=== PATIENT | female | born 1970 ===

== ENCOUNTER 2019-04-06 14:06 | Inpatient (IN) ==
[2019-04-06] MEDS ORDERED: ONDANSETRON 4 MG/2 ML VIAL IV PRN (17:41)
[2019-04-06] MEDS ORDERED: DEXTROSE 50% 25 GM/50 ML VIAL IV PRN (17:52)
[2019-04-06] MEDS: HYDROmorphone 2 MG/1 ML VIAL IV PRN (20:58)
[2019-04-06] MEDS: INSULIN LISPRO 100 UNIT/ML SUBCUT SCH (20:59)
[2019-04-06] MEDS: amLODIPine 5 MG TABLET PO SCH (20:59)
[2019-04-06] MEDS: FOLIC ACID 1 MG TABLET PO SCH (20:59)
[2019-04-06] MEDS: metroNIDAZOLE INJ 500 MG in PREMIX 1 EACH IV SCH (20:59)
[2019-04-06] MEDS: CEFEPIME 2,000 MG in SYRINGE 1 EACH IV SCH (22:20)
[2019-04-06] MEDS: prednisoLONE ACETATE 1% OPH SUSP 5 ML BOTTLE LEFT EYE SCH (22:20)
[2019-04-07] MEDS: CEFEPIME 2,000 MG in SYRINGE 1 EACH IV SCH (04:58)
[2019-04-07 04:59] LABS: Basophils # 0.1 10*3/uL (0.0-0.2); Basophils % 0.3 % (0.0-0.8); Eosinophils # 0.1 10*3/uL (0.0-0.87); Eosinophils % 0.8 % (0.00-10.9); Hematocrit 32.9 VOL% (35.7-47.0); Hemoglobin 10.3 GM/DL (12.0-16.0); Immature Granulocytes % 1.2 %; Immature Granulocytes Absolute 0.19 #; Lymphocytes # 0.6 10*3/uL (1.4-4.0); Lymphocytes % 3.7 % (21.3-54.2); Mean Corpuscular HGB Conc 31.3 GM/DL (32-36); Mean Corpuscular Volume 97.1 FL (87-102); Mean Platelet Volume 11.3 FL (9.6-12.0); Monocytes % 5.1 % (1.7-12.7); Neutrophils % 88.9 % (38.7-73.9); Platelet Count 146 T/CUMM (130-400); Red Blood Count 3.39 MC/CUMM (3.8-5.5); Red Cell Distribution Width 15.8 % (9.3-17.3); White Blood Count 15.6 T/CUMM (4-12)
[2019-04-07] MEDS: metroNIDAZOLE INJ 500 MG in PREMIX 1 EACH IV SCH ×3 (05:02→22:56)
[2019-04-07 05:16] LABS: Albumin 2.2 G/DL (3.4-5.0); Bilirubin,Total 2.3 MG/DL (0.2-1.0); Osmolality,Calculated 276.8 MOS/KG (273-304); Total Protein 6.7 G/DL (6.4-8.3)
[2019-04-07 05:43] LABS: Eosinophils 1 % (0-10); Hypochromasia 1+; Lymphocytes 4 % (20-55); Platelet Estimate Normal; Segmented Neutrophils 88 % (50-85); Total Cells Counted 100
[2019-04-07] MEDS: INSULIN LISPRO 100 UNIT/ML SUBCUT SCH ×4 (08:20→22:56)
[2019-04-07] MEDS: SEVELAMER CARBONATE 800 MG TABLET PO SCH ×3 (10:53→18:27)
[2019-04-07] MEDS: prednisoLONE ACETATE 1% OPH SUSP 5 ML BOTTLE LEFT EYE SCH ×3 (10:54→22:56)
[2019-04-07] MEDS ORDERED: BUPIVACAINE 0.5% 50 ML VIAL ONE (12:33)
[2019-04-07] MEDS ORDERED: LIDOCAINE 1%/EPI INJ 20 ML VIAL ONE (12:33)
[2019-04-07] MEDS ORDERED: EPOETIN ALFA 10,000 UNIT/1 ML VIAL IV PRN (13:25)
[2019-04-07 14:50] LABS: Hepatitis B Core IgM Quant 0.11 Index; Hepatitis B Surface Ag Quant < 0.10 Index; Hepatitis B Surface Ag Result Negative (Negative); Hepatitis C Virus Ab Result Negative (Negative)
[2019-04-07] MEDS: FOLIC ACID 1 MG TABLET PO SCH ×2 (15:58→22:56)
[2019-04-07] MEDS: METOPROLOL SUCCINATE XL 25 MG TABLET PO SCH (15:59)
[2019-04-07] MEDS: amLODIPine 5 MG TABLET PO SCH ×2 (15:59→22:56)
[2019-04-07] MEDS: CYANOCOBALAMIN 500 MCG TABLET PO SCH (15:59)
[2019-04-07] MEDS ORDERED: CALCIUM CHLORIDE 1,000 MG/10 ML VIAL IV ONE (16:07)
[2019-04-07] MEDS ORDERED: ETOMIDATE 40 MG/20 ML VIAL IV ONE (16:08)
[2019-04-07] MEDS ORDERED: SEVOFLURANE 1 UNIT/15 MINUTE INH ONE (16:08)
[2019-04-07] MEDS ORDERED: ACETAMINOPHEN 1,000 MG/100 ML VIAL IV ONE (16:08)
[2019-04-07] MEDS ORDERED: ROCURONIUM 100 MG/10 ML VIAL IV ONE (16:08)
[2019-04-07] MEDS ORDERED: SODIUM CHLORIDE 0.9% 500 ML IV ONE (16:08)
[2019-04-07] MEDS ORDERED: PHENYLEPHRINE 1 MG/10 ML SYRINGE IV ONE (16:08)
[2019-04-07] MEDS ORDERED: fentaNYL 100 MCG/2 ML VIAL ONE (16:08)
[2019-04-07] MEDS ORDERED: ONDANSETRON 4 MG/2 ML VIAL ONE (16:08)
[2019-04-07 17:17] LABS: Basophils % 0.4 % (0.0-0.8); Eosinophils % 0.6 % (0.00-10.9); Hematocrit 30.6 VOL% (35.7-47.0); Hemoglobin 9.5 GM/DL (12.0-16.0); Immature Granulocytes % 1.4 %; Immature Granulocytes Absolute 0.07 #; Lymphocytes # 0.5 10*3/uL (1.4-4.0); Mean Corpuscular Volume 97.5 FL (87-102); Mean Platelet Volume 11.2 FL (9.6-12.0); Neutrophils % 80.6 % (38.7-73.9); Platelet Count 156 T/CUMM (130-400); Red Blood Count 3.14 MC/CUMM (3.8-5.5); Red Cell Distribution Width 16.2 % (9.3-17.3); White Blood Count 4.9 T/CUMM (4-12)
[2019-04-07 17:44] LABS: Calcium 9.2 MG/DL (8.5-10.1); Osmolality,Calculated 282.5 MOS/KG (273-304)
[2019-04-07] MEDS ORDERED: DOPamine 800 MG/250 ML PREMIX IV ONE (17:51)
[2019-04-07 18:08] LABS: Band Neutrophils 4 % (0-10); Lymphocytes 13 % (20-55); Segmented Neutrophils 81 % (50-85); Total Cells Counted 100
[2019-04-07 18:09] LABS: Atypical Lymphocytes 1+; Burr Cells 1+; Polychromasia Slight; Rouleau 1+
[2019-04-07 18:10] LABS: Anisocytosis 1+; Macrocytosis 1+; Microcytosis 1+; Platelet Estimate Normal; Poikilocytosis 1+
[2019-04-07] MEDS ORDERED: DOPamine 800 MG/250 ML PREMIX IV PRN (19:00)
[2019-04-07] MEDS ORDERED: ALBUMIN 25% 25 GM in PREMIX 1 EACH IV PRN (19:15)
[2019-04-07] MEDS: GLUCAGON 1 MG VIAL IM PRN ×2 (19:30→20:35)
[2019-04-07] MEDS ORDERED: SODIUM CHLORIDE 0.9% 1,000 ML IV PRN (19:53)
[2019-04-07] MEDS: PHENYLEPHRINE DRIP 40 MG/250 ML PREMIX IV PRN (20:30)
[2019-04-07 20:51] LABS: ABG Base Excess -1.3 MMOL/L (-2.5-2.5); ABG HCO3 23.3 MMOL/L (20-26); ABG Oxygen Saturation 93.1 % (95-100); ABG PCO2 36.6 MM HG (35-48); ABG PH 7.407 (7.35-7.45); ABG PO2 68.7 MM HG (80-95); ABG TCO2 21.1 MMOL/L (23-27)
[2019-04-07] MEDS ORDERED: VECURONIUM 10 MG VIAL IV ONE ×3 (20:51→21:00)
[2019-04-07] MEDS ORDERED: ETOMIDATE 20 MG/10 ML VIAL IV ONE ×2 (20:51→20:59)
[2019-04-07 21:04] LABS: PT Patient Result 11.1 SECS
[2019-04-07 21:06] LABS: Basophils % 0.4 % (0.0-0.8); Eosinophils % 0.3 % (0.00-10.9); Hematocrit 29.3 VOL% (35.7-47.0); Immature Granulocytes % 0.4 %; Immature Granulocytes Absolute 0.03 #; Lymphocytes # 0.7 10*3/uL (1.4-4.0); Lymphocytes % 10.3 % (21.3-54.2); Mean Corpuscular HGB Conc 30.7 GM/DL (32-36); Mean Corpuscular Volume 97.3 FL (87-102); Mean Platelet Volume 11.5 FL (9.6-12.0); Monocytes % 5.5 % (1.7-12.7); Neutrophils % 83.1 % (38.7-73.9); Platelet Count 161 T/CUMM (130-400); Red Blood Count 3.01 MC/CUMM (3.8-5.5); Red Cell Distribution Width 16.1 % (9.3-17.3)
[2019-04-07] MEDS ORDERED: PROPOFOL 1,000 MG/100 ML BOTTLE IV ONE (21:08)
[2019-04-07 21:11] LABS: Partial Thromboplastin Time 44.3 SECS (0-40)
[2019-04-07] MEDS: PROPOFOL 1,000 MG/100 ML BOTTLE IV SCH (21:11)
[2019-04-07 21:12] LABS: Albumin 2.5 G/DL (3.4-5.0); Bilirubin,Total 3.6 MG/DL (0.2-1.0); Calcium 9.2 MG/DL (8.5-10.1); Osmolality,Calculated 272.7 MOS/KG (273-304); Total Protein 6.5 G/DL (6.4-8.3); White Blood Count 6.8 T/CUMM (4-12)
[2019-04-07] MEDS ORDERED: SODIUM CHLORIDE 0.9% 1,000 ML IV ONE (21:20)
[2019-04-07] MEDS: DEXTROSE 5% NACL 0.9% 1,000 ML IV SCH (21:20)
[2019-04-07 21:27] LABS: Anisocytosis 2+; Band Neutrophils 5 % (0-10); Eosinophils 1 % (0-10); Lymphocytes 12 % (20-55); Macrocytosis 2+; Metamyelocytes 1 %; Microcytosis 1+; Segmented Neutrophils 77 % (50-85); Total Cells Counted 100
[2019-04-07 21:29] LABS: Burr Cells 1+; Schistocytes Slight
[2019-04-07 21:30] LABS: Platelet Estimate Normal
[2019-04-07 22:20] LABS: ABG Base Excess -2.8 MMOL/L (-2.5-2.5); ABG Oxygen Saturation 97.9 % (95-100); ABG PCO2 39.9 MM HG (35-48); ABG PH 7.357 (7.35-7.45); ABG TCO2 20.9 MMOL/L (23-27)
[2019-04-07] MEDS: HYDROmorphone 2 MG/1 ML VIAL IV PRN (22:30)
[2019-04-08] MEDS: HYDROmorphone 2 MG/1 ML VIAL IV PRN ×6 (00:35→23:16)
[2019-04-08] MEDS: PHENYLEPHRINE DRIP 40 MG/250 ML PREMIX IV PRN ×3 (03:39→11:00)
[2019-04-08 04:20] LABS: ABG Base Excess -3.2 MMOL/L (-2.5-2.5); ABG HCO3 21.8 MMOL/L (20-26); ABG Oxygen Saturation 98.7 % (95-100); ABG PCO2 34.1 MM HG (35-48); ABG PH 7.397 (7.35-7.45); ABG TCO2 18.9 MMOL/L (23-27)
[2019-04-08 04:47] LABS: Basophils # 0.1 10*3/uL (0.0-0.2); Basophils % 0.6 % (0.0-0.8); Eosinophils # 0.3 10*3/uL (0.0-0.87); Eosinophils % 3.5 % (0.00-10.9); Hematocrit 32.4 VOL% (35.7-47.0); Hemoglobin 10.6 GM/DL (12.0-16.0); Immature Granulocytes % 0.7 %; Immature Granulocytes Absolute 0.06 #; Lymphocytes # 0.8 10*3/uL (1.4-4.0); Lymphocytes % 9.5 % (21.3-54.2); Mean Corpuscular HGB Conc 32.7 GM/DL (32-36); Mean Corpuscular Volume 92.3 FL (87-102); Mean Platelet Volume 11.4 FL (9.6-12.0); Monocytes % 6.4 % (1.7-12.7); Neutrophils % 79.3 % (38.7-73.9); Platelet Count 110 T/CUMM (130-400); Red Blood Count 3.51 MC/CUMM (3.8-5.5); White Blood Count 8.7 T/CUMM (4-12)
[2019-04-08 05:06] LABS: Albumin 1.6 G/DL (3.4-5.0); Bilirubin,Total 2.7 MG/DL (0.2-1.0); Calcium 7.9 MG/DL (8.5-10.1); Osmolality,Calculated 284.1 MOS/KG (273-304); Total Protein 4.8 G/DL (6.4-8.3)
[2019-04-08] MEDS: CEFEPIME 1,000 MG in SYRINGE 1 EACH IV SCH (05:07)
[2019-04-08] MEDS: metroNIDAZOLE INJ 500 MG in PREMIX 1 EACH IV SCH ×3 (05:07→22:05)
[2019-04-08 05:08] LABS: Amylase 34 U/L (25-115)
[2019-04-08] MEDS: DEXTROSE 5% NACL 0.9% 1,000 ML IV SCH ×3 (05:08→21:30)
[2019-04-08 05:12] LABS: Band Neutrophils 19 % (0-10); Hypochromasia Slight; Lymphocytes 9 % (20-55); Platelet Estimate Decreased; Segmented Neutrophils 61 % (50-85); Total Cells Counted 100
[2019-04-08 05:13] LABS: Microcytosis Slight
[2019-04-08] MEDS: INSULIN LISPRO 100 UNIT/ML SUBCUT SCH ×5 (06:09→22:31)
[2019-04-08] MEDS: SEVELAMER CARBONATE 800 MG TABLET PO SCH ×2 (10:28→12:29)
[2019-04-08] MEDS: CYANOCOBALAMIN 500 MCG TABLET PO SCH (10:31)
[2019-04-08] MEDS: FOLIC ACID 1 MG TABLET PO SCH ×2 (10:32→21:57)
[2019-04-08] MEDS: METOPROLOL SUCCINATE XL 25 MG TABLET PO SCH ×2 (12:21→12:29)
[2019-04-08] MEDS: prednisoLONE ACETATE 1% OPH SUSP 5 ML BOTTLE LEFT EYE SCH ×3 (12:21→22:31)
[2019-04-08] MEDS: amLODIPine 5 MG TABLET PO SCH (12:29)
[2019-04-08] MEDS: SEVELAMER CARBONATE POWDER 2.4 GM PACK PO SCH ×2 (13:15→17:06)
[2019-04-08] MEDS ORDERED: PHENYLEPHRINE DRIP 40 MG/250 ML PREMIX IV ONE (14:14)
[2019-04-08] MEDS: PHENYLEPHRINE INJ 160 MG in SODIUM CHLORIDE 0.9% 234 ML IV PRN (16:00)
[2019-04-08] MEDS: PROPOFOL 1,000 MG/100 ML BOTTLE IV SCH ×2 (19:25→22:02)
[2019-04-09] MEDS: INSULIN LISPRO 100 UNIT/ML SUBCUT SCH ×6 (00:55→21:48)
[2019-04-09] MEDS: HYDROmorphone 2 MG/1 ML VIAL IV PRN ×3 (01:20→23:15)
[2019-04-09] MEDS: PHENYLEPHRINE INJ 160 MG in SODIUM CHLORIDE 0.9% 234 ML IV PRN ×2 (01:35→08:46)
[2019-04-09 02:56] LABS: ABG Base Excess -3.3 MMOL/L (-2.5-2.5); ABG HCO3 21.7 MMOL/L (20-26); ABG Oxygen Saturation 99.3 % (95-100); ABG PCO2 25.2 MM HG (35-48); ABG PH 7.484 (7.35-7.45)
[2019-04-09 03:12] LABS: Basophils # 0.1 10*3/uL (0.0-0.2); Basophils % 0.5 % (0.0-0.8); Eosinophils # 0.1 10*3/uL (0.0-0.87); Eosinophils % 0.3 % (0.00-10.9); Hematocrit 31.5 VOL% (35.7-47.0); Hemoglobin 10.2 GM/DL (12.0-16.0); Immature Granulocytes % 1.8 %; Immature Granulocytes Absolute 0.44 #; Lymphocytes # 1.1 10*3/uL (1.4-4.0); Lymphocytes % 4.4 % (21.3-54.2); Mean Corpuscular HGB Conc 32.4 GM/DL (32-36); Mean Corpuscular Volume 91.3 FL (87-102); Mean Platelet Volume 12.9 FL (9.6-12.0); Monocytes % 2.9 % (1.7-12.7); NRBC # 0.05 10*3/uL; Neutrophils % 90.1 % (38.7-73.9); Platelet Count 93 T/CUMM (130-400); Red Blood Count 3.45 MC/CUMM (3.8-5.5); Red Cell Distribution Width 17.6 % (9.3-17.3)
[2019-04-09 03:20] LABS: Albumin 1.3 G/DL (3.4-5.0); Bilirubin,Total 2.2 MG/DL (0.2-1.0); Calcium 7.8 MG/DL (8.5-10.1); Osmolality,Calculated 281.4 MOS/KG (273-304); Total Protein 4.4 G/DL (6.4-8.3)
[2019-04-09 04:21] LABS: Band Neutrophils 15 % (0-10); Lymphocytes 4 % (20-55); Metamyelocytes 1 %; Platelet Estimate Decreased; Segmented Neutrophils 78 % (50-85); Total Cells Counted 100
[2019-04-09 04:22] LABS: Anisocytosis 1+; Burr Cells Few; Macrocytosis 1+
[2019-04-09] MEDS: CEFEPIME 1,000 MG in SYRINGE 1 EACH IV SCH (06:08)
[2019-04-09] MEDS: DEXTROSE 5% NACL 0.9% 1,000 ML IV SCH ×3 (06:11→23:04)
[2019-04-09] MEDS: metroNIDAZOLE INJ 500 MG in PREMIX 1 EACH IV SCH ×3 (06:12→22:34)
[2019-04-09] MEDS: SEVELAMER CARBONATE POWDER 2.4 GM PACK PO SCH ×3 (08:12→16:25)
[2019-04-09] MEDS: METOPROLOL SUCCINATE XL 25 MG TABLET PO SCH (08:19)
[2019-04-09] MEDS: FOLIC ACID 1 MG TABLET PO SCH ×2 (08:45→21:48)
[2019-04-09] MEDS: CYANOCOBALAMIN 500 MCG TABLET PO SCH (08:45)
[2019-04-09] MEDS: prednisoLONE ACETATE 1% OPH SUSP 5 ML BOTTLE LEFT EYE SCH ×3 (08:46→21:48)
[2019-04-09] MEDS: SKIN HEALING OINT (AQUAPHOR) 50 GM TUBE TOP PRN (08:46)
[2019-04-09] MEDS: NOREPINEPHRINE 8 MG in SODIUM CHLORIDE 0.9% 242 ML IV PRN ×2 (09:40→23:05)
[2019-04-09] MEDS ORDERED: SODIUM BICARBONATE 50 MEQ/50 ML VIAL IV ONE ×2 (10:07→10:10)
[2019-04-09] MEDS ORDERED: SODIUM CHLORIDE 0.9% 1,000 ML IV ONE ×2 (15:33→19:08)
[2019-04-09 15:53] LABS: ABG Base Excess -3.8 MMOL/L (-2.5-2.5); ABG HCO3 21.2 MMOL/L (20-26); ABG Oxygen Saturation 94.2 % (95-100); ABG PCO2 29.5 MM HG (35-48); ABG PH 7.428 (7.35-7.45); ABG PO2 70.4 MM HG (80-95); ABG TCO2 17.6 MMOL/L (23-27)
[2019-04-09 16:28] LABS: Basophils # 0.2 10*3/uL (0.0-0.2); Basophils % 0.5 % (0.0-0.8); Eosinophils # 0.1 10*3/uL (0.0-0.87); Eosinophils % 0.3 % (0.00-10.9); Hematocrit 30.5 VOL% (35.7-47.0); Hemoglobin 9.6 GM/DL (12.0-16.0); Immature Granulocytes % 1.8 %; Immature Granulocytes Absolute 0.55 #; Lymphocytes # 0.6 10*3/uL (1.4-4.0); Mean Corpuscular HGB Conc 31.5 GM/DL (32-36); Mean Corpuscular Volume 93.8 FL (87-102); Mean Platelet Volume 12.3 FL (9.6-12.0); Monocytes % 3.1 % (1.7-12.7); NRBC # 0.04 10*3/uL; Neutrophils % 92.3 % (38.7-73.9); Red Blood Count 3.25 MC/CUMM (3.8-5.5); Red Cell Distribution Width 17.9 % (9.3-17.3); White Blood Count 30.6 T/CUMM (4-12)
[2019-04-09 16:31] LABS: Platelet Count 79 T/CUMM (130-400)
[2019-04-09 16:48] LABS: Band Neutrophils 8 % (0-10); Lymphocytes 1 % (20-55); Segmented Neutrophils 89 % (50-85); Total Cells Counted 100
[2019-04-09 16:49] LABS: Anisocytosis 1+
[2019-04-09 16:50] LABS: Burr Cells Few; Hypochromasia Slight
[2019-04-09 16:51] LABS: Platelet Estimate Decreased
[2019-04-09 17:29] LABS: Alanine Aminotransferase 202 U/L (13-56); Albumin 1.3 G/DL (3.4-5.0); Alkaline Phosphatase 325 U/L (45-117); Aspartate Amino Transferase 797 U/L (0-37); Blood Urea Nitrogen 22 MG/DL (7-18); Calcium 7.9 MG/DL (8.5-10.1); Glucose 95 MG/DL (74-106); Osmolality,Calculated 285.1 MOS/KG (273-304); Total Protein 4.4 G/DL (6.4-8.3)
[2019-04-09] MEDS ORDERED: ALBUMIN 5% 12.5 GM in PREMIX 1 EACH IV ONE ×2 (21:42→22:35)
[2019-04-09] MEDS: PROPOFOL 1,000 MG/100 ML BOTTLE IV SCH (21:49)
[2019-04-09] MEDS: LINEZOLID INJ 600 MG in PREMIX 1 EACH IV SCH (22:34)
[2019-04-09] MEDS: PIPERACILLIN/TAZOBACTAM 3,375 MG in SODIUM CHLORIDE 0.9% 100 ML IV SCH (22:34)
[2019-04-09 22:52] LABS: Hematocrit 26.7 VOL% (35.7-47.0); Hemoglobin 8.6 GM/DL (12.0-16.0)
[2019-04-10] MEDS: INSULIN LISPRO 100 UNIT/ML SUBCUT SCH ×6 (00:51→23:39)
[2019-04-10] MEDS: HYDROmorphone 2 MG/1 ML VIAL IV PRN ×2 (01:35→04:32)
[2019-04-10 03:53] LABS: ABG Base Excess -3.3 MMOL/L (-2.5-2.5); ABG HCO3 21.7 MMOL/L (20-26); ABG Oxygen Saturation 98.1 % (95-100); ABG PCO2 31.1 MM HG (35-48); ABG PH 7.426 (7.35-7.45); ABG TCO2 19.1 MMOL/L (23-27)
[2019-04-10 04:01] LABS: Basophils # 0.1 10*3/uL (0.0-0.2); Basophils % 0.3 % (0.0-0.8); Eosinophils # 0.1 10*3/uL (0.0-0.87); Eosinophils % 0.4 % (0.00-10.9); Hematocrit 23.5 VOL% (35.7-47.0); Hemoglobin 7.6 GM/DL (12.0-16.0); Immature Granulocytes % 1.5 %; Immature Granulocytes Absolute 0.43 #; Lymphocytes # 0.6 10*3/uL (1.4-4.0); Lymphocytes % 2.1 % (21.3-54.2); Mean Corpuscular HGB Conc 32.3 GM/DL (32-36); Mean Corpuscular Volume 91.8 FL (87-102); Mean Platelet Volume 11.8 FL (9.6-12.0); Monocytes % 3.5 % (1.7-12.7); NRBC # 0.02 10*3/uL; Neutrophils % 92.2 % (38.7-73.9); Red Blood Count 2.56 MC/CUMM (3.8-5.5); Red Cell Distribution Width 17.6 % (9.3-17.3); White Blood Count 27.9 T/CUMM (4-12)
[2019-04-10 04:03] LABS: Platelet Count 61 T/CUMM (130-400)
[2019-04-10 04:34] LABS: Alanine Aminotransferase 142 U/L (13-56); Albumin 1.7 G/DL (3.4-5.0); Alkaline Phosphatase 249 U/L (45-117); Aspartate Amino Transferase 492 U/L (0-37); Blood Urea Nitrogen 22 MG/DL (7-18); Calcium 7.4 MG/DL (8.5-10.1); Glucose 133 MG/DL (74-106); Osmolality,Calculated 285.3 MOS/KG (273-304); Total Protein 4.2 G/DL (6.4-8.3)
[2019-04-10 05:18] LABS: Band Neutrophils 4 % (0-10); Eosinophils 1 % (0-10); Hypochromasia 1+; Lymphocytes 3 % (20-55); Platelet Estimate Decreased; Segmented Neutrophils 88 % (50-85); Total Cells Counted 100
[2019-04-10] MEDS ORDERED: SODIUM CHLORIDE 0.9% 1,000 ML IV PRN (05:42)
[2019-04-10] MEDS: CEFEPIME 1,000 MG in SYRINGE 1 EACH IV SCH (06:35)
[2019-04-10] MEDS: metroNIDAZOLE INJ 500 MG in PREMIX 1 EACH IV SCH (06:38)
[2019-04-10] MEDS: DEXTROSE 5% NACL 0.9% 1,000 ML IV SCH ×3 (06:39→23:51)
[2019-04-10] MEDS: LINEZOLID INJ 600 MG in PREMIX 1 EACH IV SCH (07:58)
[2019-04-10] MEDS: SEVELAMER CARBONATE POWDER 2.4 GM PACK PO SCH ×3 (08:13→16:54)
[2019-04-10] MEDS: METOPROLOL SUCCINATE XL 25 MG TABLET PO SCH (08:34)
[2019-04-10] MEDS: CYANOCOBALAMIN 500 MCG TABLET PO SCH (08:53)
[2019-04-10] MEDS: FOLIC ACID 1 MG TABLET PO SCH ×2 (08:53→23:54)
[2019-04-10] MEDS: PIPERACILLIN/TAZOBACTAM 3,375 MG in SODIUM CHLORIDE 0.9% 100 ML IV SCH ×2 (08:53→23:54)
[2019-04-10] MEDS: prednisoLONE ACETATE 1% OPH SUSP 5 ML BOTTLE LEFT EYE SCH ×3 (08:53→23:54)
[2019-04-10] MEDS ORDERED: VANCOMYCIN INJ 1,500 MG in SODIUM CHLORIDE 0.9% 500 ML IV ONE (10:00)
[2019-04-10] MEDS: FAMOTIDINE 20 MG/2 ML VIAL IV SCH ×2 (11:28→23:54)
[2019-04-10] MEDS: SKIN HEALING OINT (AQUAPHOR) 50 GM TUBE TOP PRN (12:56)
[2019-04-10 15:59] LABS: Hemoglobin 10.2 GM/DL (12.0-16.0)
[2019-04-10] MEDS ORDERED: ASPIRIN 300 MG SUPP RECTAL SCH (16:00)
[2019-04-10] MEDS ORDERED: ASPIRIN 325 MG TABLET PO ONE (16:37)
[2019-04-10] MEDS: PROPOFOL 1,000 MG/100 ML BOTTLE IV SCH (23:40)
[2019-04-11] MEDS: INSULIN LISPRO 100 UNIT/ML SUBCUT SCH ×7 (00:44→23:08)
[2019-04-11 03:25] LABS: Basophils # 0.1 10*3/uL (0.0-0.2); Basophils % 0.3 % (0.0-0.8); Eosinophils # 0.2 10*3/uL (0.0-0.87); Hemoglobin 10.3 GM/DL (12.0-16.0); Immature Granulocytes % 1.4 %; Immature Granulocytes Absolute 0.32 #; Lymphocytes # 0.7 10*3/uL (1.4-4.0); Lymphocytes % 2.9 % (21.3-54.2); Mean Corpuscular HGB Conc 32.2 GM/DL (32-36); Mean Corpuscular Volume 90.7 FL (87-102); Mean Platelet Volume 11.8 FL (9.6-12.0); Monocytes % 3.5 % (1.7-12.7); NRBC # 0.02 10*3/uL; Neutrophils % 90.9 % (38.7-73.9); Red Blood Count 3.53 MC/CUMM (3.8-5.5); Red Cell Distribution Width 17.4 % (9.3-17.3); White Blood Count 23.4 T/CUMM (4-12)
[2019-04-11 03:31] LABS: Platelet Count 36 T/CUMM (130-400)
[2019-04-11 03:33] LABS: ABG Base Excess -6.4 MMOL/L (-2.5-2.5); ABG HCO3 17.5 MMOL/L (20-26); ABG Oxygen Saturation 97.8 % (95-100); ABG PCO2 29.8 MM HG (35-48); ABG PH 7.387 (7.35-7.45); ABG PO2 114.8 MM HG (80-95); ABG TCO2 18.4 MMOL/L (23-27)
[2019-04-11 03:43] LABS: Albumin 1.3 G/DL (3.4-5.0); Bilirubin,Total 2.4 MG/DL (0.2-1.0); Calcium 8.5 MG/DL (8.5-10.1); Total Protein 4.2 G/DL (6.4-8.3)
[2019-04-11 04:40] LABS: Band Neutrophils 2 % (0-10); Lymphocytes 2 % (20-55); Platelet Estimate Decreased; Segmented Neutrophils 93 % (50-85); Total Cells Counted 100
[2019-04-11] MEDS ORDERED: VANCOMYCIN INJ 750 MG in SODIUM CHLORIDE 0.9% 250 ML IV PRN (07:40)
[2019-04-11] MEDS: DEXTROSE 5% NACL 0.9% 1,000 ML IV SCH ×3 (07:40→23:33)
[2019-04-11] MEDS: SEVELAMER CARBONATE POWDER 2.4 GM PACK PO SCH ×3 (07:56→17:16)
[2019-04-11] MEDS: METOPROLOL SUCCINATE XL 25 MG TABLET PO SCH (09:13)
[2019-04-11] MEDS: prednisoLONE ACETATE 1% OPH SUSP 5 ML BOTTLE LEFT EYE SCH ×3 (09:16→21:46)
[2019-04-11] MEDS: FOLIC ACID 1 MG TABLET PO SCH ×2 (11:22→21:45)
[2019-04-11] MEDS: CYANOCOBALAMIN 500 MCG TABLET PO SCH (11:22)
[2019-04-11] MEDS: ASPIRIN 325 MG TABLET PO SCH (11:23)
[2019-04-11] MEDS: FAMOTIDINE 20 MG/2 ML VIAL IV SCH ×2 (11:37→21:45)
[2019-04-11] MEDS: PIPERACILLIN/TAZOBACTAM 3,375 MG in SODIUM CHLORIDE 0.9% 100 ML IV SCH ×2 (11:40→21:46)
[2019-04-11] MEDS ORDERED: VANCOMYCIN INJ 750 MG in SODIUM CHLORIDE 0.9% 250 ML IV ONE (13:00)
[2019-04-12 03:45] LABS: ABG Base Excess -1.3 MMOL/L (-2.5-2.5); ABG HCO3 21.1 MMOL/L (20-26); ABG Oxygen Saturation 98.5 % (95-100); ABG PH 7.494 (7.35-7.45); ABG PO2 148.8 MM HG (80-95); ABG TCO2 21.9 MMOL/L (23-27)
[2019-04-12 04:11] LABS: Basophils % 0.2 % (0.0-0.8); Eosinophils # 0.2 10*3/uL (0.0-0.87); Eosinophils % 1.2 % (0.00-10.9); Hemoglobin 10.5 GM/DL (12.0-16.0); Immature Granulocytes % 1.3 %; Immature Granulocytes Absolute 0.19 #; Lymphocytes # 0.7 10*3/uL (1.4-4.0); Lymphocytes % 4.9 % (21.3-54.2); Mean Corpuscular HGB Conc 32.8 GM/DL (32-36); Mean Corpuscular Volume 88.9 FL (87-102); Monocytes % 3.8 % (1.7-12.7); NRBC # 0.02 10*3/uL; Neutrophils % 88.6 % (38.7-73.9); Red Cell Distribution Width 17.1 % (9.3-17.3); White Blood Count 14.6 T/CUMM (4-12)
[2019-04-12 04:16] LABS: Platelet Count 24 T/CUMM (130-400)
[2019-04-12 04:24] LABS: Albumin 1.1 G/DL (3.4-5.0); Bilirubin,Total 2.8 MG/DL (0.2-1.0); Osmolality,Calculated 290.7 MOS/KG (273-304)
[2019-04-12 04:25] LABS: Prealbumin < 3.0 MG/DL (20-40)
[2019-04-12 04:48] LABS: Eosinophils 1 % (0-10); Lymphocytes 3 % (20-55); Platelet Estimate Decreased; Segmented Neutrophils 95 % (50-85); Total Cells Counted 100
[2019-04-12] MEDS: INSULIN LISPRO 100 UNIT/ML SUBCUT SCH ×4 (04:49→17:21)
[2019-04-12 06:22] VITALS: BP 124/50
[2019-04-12] MEDS: PROPOFOL 1,000 MG/100 ML BOTTLE IV SCH (10:09)
[2019-04-12] MEDS: CYANOCOBALAMIN 500 MCG TABLET PO SCH (10:10)
[2019-04-12] MEDS: ASPIRIN 325 MG TABLET PO SCH (10:10)
[2019-04-12] MEDS: FAMOTIDINE 20 MG/2 ML VIAL IV SCH (10:11)
[2019-04-12] MEDS: FOLIC ACID 1 MG TABLET PO SCH (10:11)
[2019-04-12] MEDS: PIPERACILLIN/TAZOBACTAM 3,375 MG in SODIUM CHLORIDE 0.9% 100 ML IV SCH (10:13)
[2019-04-12] MEDS: prednisoLONE ACETATE 1% OPH SUSP 5 ML BOTTLE LEFT EYE SCH ×2 (10:13→15:45)
[2019-04-12] MEDS: SEVELAMER CARBONATE POWDER 2.4 GM PACK PO SCH ×3 (10:46→17:21)
[2019-04-12] MEDS: DEXTROSE 5% NACL 0.9% 1,000 ML IV SCH (13:19)
[2019-04-12] MEDS: METOPROLOL SUCCINATE XL 25 MG TABLET PO SCH (13:20)
[2019-04-12] MEDS ORDERED: METOPROLOL TARTRATE 25 MG TABLET PO SCH (14:00)
[2019-04-12] MEDS: POTASSIUM CHLORIDE RIDER 10 MEQ in PREMIX 1 EACH IV SCH ×2 (14:28→15:42)
[2019-04-12] MEDS: HYDROmorphone 2 MG/1 ML VIAL IV PRN (14:34)
[2019-04-12] MEDS ORDERED: POTASSIUM CHLORIDE RIDER 100 ML IV ONE (15:33)
== END 2019-04-12 17:20 | DRG 853 ==
LOC: N.2E 16:05 → SUATTDRO 16:05 → N.ICU 04-07 15:52
PROVIDERS: ADMIT Internal Medicine; ATTEND Internal Medicine
PROC: LAPCHOL (2019-04-07 13:25)